=== PATIENT | male | born 1970 | race Caucasian/White ===

== ENCOUNTER → 2019-01-04 | Outpatient (CLI) | payer OTHER ==
[~2019-01-04] MED LIST: BENICAR20 MG PO; IBUPROFEN 800800 MG PO; NITROGLYCERIN0.4 MG SUBLING; NORCO 5-325 TA1 EACH PO; OLMESARTAN-HCT1 EAC2 PO; ZOCOR20 MG PO
[2019-01-04 09:45] LABS: ABSOLUTE NEUTROPHILS 4.3 thou/uL (1.4-8.2); EOSINOPHILS 1.8 % (0.0-3.0); HEMATOCRIT 48.5 % (42.0-52.0); HEMOGLOBIN 16.6 gm/dL (14.0-18.0); MCH 30.1 pg (26.0-34.0); MCHC 34.3 g/dL (28.0-37.0); MCV 87.8 fL (80.0-100.0); MONOCYTES 10.2 % (1.0-8.0); PLATELET COUNT 279 thou/uL (150-400); RBC 5.52 mil/uL (4.50-6.00); RDW 14.1 % (10.5-14.5); WBC 7.5 thou/uL (4.0-11.0)
[2019-01-04 09:52] LABS: CALCIUM 9.7 mg/dL (8.5-10.1); CREATININE 1.2 mg/dL (0.7-1.3); POTASSIUM 4.6 mmol/L (3.5-5.1)
[2019-01-04 09:58] LABS: ALBUMIN 3.7 g/dL (3.4-5.0); TOTAL BILIRUBIN 0.5 mg/dL (<0.1-1.0); TOTAL PROTEIN 7.3 g/dL (6.4-8.2)
== END ==
LOC: CAT 08:56
PROVIDERS: Nurse Practitioner
DX: K57.30 Diverticulosis of large intestine without perforation or abscess without bleeding (principal); K76.0 Fatty (change of) liver, not elsewhere classified

== ENCOUNTER 2019-09-27 08:09 | Emergency (ER) | payer OTHER ==
[~2019-09-27] VITALS: Ht 193 cm; Wt 154.2 kg
[2019-09-27] MEDS ORDERED: TOPROL XL50 MG PO (08:30)
[2019-09-27] MEDS ORDERED: NORVASC 2.5 MG2.5 M1 PO (08:30)
[2019-09-27] MEDS ORDERED: VALIUM5 MG PO (09:43)
[2019-09-27] MEDS ORDERED: MOBIC15 MG PO (09:43)
[2019-09-27] MEDS ORDERED: NORCO 5-325 TA1 EAC1 PO (09:43)
[2019-09-27 09:47] VITALS: BP 127/77
== END 2019-09-27 09:55 | disposition home or self-care (01) ==
LOC: ER 08:09
DX: S39.012A Strain of muscle, fascia and tendon of lower back, initial encounter (principal); I10 Essential (primary) hypertension; E78.00 Pure hypercholesterolemia, unspecified; Z88.1 Allergy status to other antibiotic agents; X50.1XXA Overexertion from prolonged static or awkward postures, initial encounter; Y93.89 Activity, other specified; Y92.89 Other specified places as the place of occurrence of the external cause; Y99.8 Other external cause status